=== PATIENT | female | born 1960 | race Caucasian/White ===

== ENCOUNTER → 2019-03-13 | Outpatient (CLI) | payer BC ==
--- NOTE | 2019-03-15 08:15 | Diagnostic Imaging Report ---
EXAM: Bone mineral density study 03/13/2019 10:30 AM INDICATION: ^AYSMPOTMATIC MENOPAUSAL STATE COMPARISON: Previous DEXA none. Baseline DEXA none FINDINGS: Evaluation of the left hip and lumbar spine was performed. The study is technically adequate. The patient's fracture risk is compared to an age-matched control. The patient denies prior surgery/fracture of the spine, hips or forearm. LEFT HIP * Femoral neck bone mineral density: 0.797 gm/cm2, T-score is -0.6, Z-score is 0.5. * Total bone mineral density: 0.848 gm/cm2, T-score is -0.9, Z-score is 0.0. LUMBAR SPINE * Total bone mineral density: 0.888 gm/cm2, T-score is -1.4, Z-score is -0.3. IMPRESSION: 1. LEFT HIP: Bone mineralization by WHO Classification is normal, the fracture risk is not increased. 2. LUMBAR SPINE: Bone mineralization by WHO Classification is osteopenia, the fracture risk is moderate. 3. With a Z score of -0.3, bone mineral density is within normal range for a patient of this age. Bone mineral density of the lumbar spine is osteopenic relative to young adult normals. 4. Calculated 10 year risk of major osteoporotic fracture 3.2%, hip fracture 0.1%. Signed by: Dr. Kike Hines M.D. on 03/15/2019 8:11 AM
--- NOTE | 2019-04-01 09:01 | Diagnostic Imaging Report ---
#[id number] - MGSCRBIL #BILATERAL DIGITAL SCREENING MAMMOGRAM WITH CAD: 03/13/2019 CLINICAL: Routine screening. Comparison is made to exams dated: 06/22/2017 mammogram and 04/23/2016 mammogram - [facility] Pettit. Current study contains 4 films. The tissue of both breasts is heterogeneously dense. This may lower the sensitivity of mammography. Current study was also evaluated with a Computer Aided Detection (CAD) system. Benign appearing calcifications are noted bilaterally. No significant masses, calcifications, or other findings are seen in either breast. IMPRESSION: BENIGN There is no mammographic evidence of malignancy. A 1 year screening mammogram is recommended. The patient will be notified by letter of the results. LUCIA SHEPPARD M.D. ct/penrad:03/29/2019 08:19:02 Supervisor Garage: Alondra DE LA CRUZ)(Vinay), [facility] letter sent: Normal Exam Mammogram BI-RADS: 2 Benign
== END ==
LOC: EDBD 10:19 → MAMMO 10:19
PROVIDERS: ATTEND Internal Medicine
DX: Z12.31 Encounter for screening mammogram for malignant neoplasm of breast (principal); M89.9 Disorder of bone, unspecified
CPT/HCPCS: 77067; 77080